=== PATIENT | male | born 1970 | race Caucasian/White ===

== ENCOUNTER 2021-10-01 14:34 | Outpatient (CLI) | payer BC, SELFPAY ==
--- NOTE | ~2021-10-01 | XR_ITS ---
XR abdomen/kub 1V 10/01/2021 14:53 Indication: Renal stones Procedure: KUB Comparison: No prior studies for comparison. Findings: There are left renal stones, largest measuring approximately 7 mm. Bowel gas pattern is non obstructive. No acute osseous abnormality. There are surgical changes in the pelvis. Impression: 1: Left nephrolithiasis. Reviewed, dictated and finalized at location B. Impression: 1: Left nephrolithiasis.
== END 2021-10-01 14:35 | disposition home or self-care (01) ==
PROVIDERS: Visit Provider Urology
DX: N20.0 Calculus of kidney (principal)
CPT/HCPCS: 74018

== ENCOUNTER 2021-11-23 15:04 | Outpatient (CLI) | payer BC, SELFPAY ==
--- NOTE | ~2021-11-23 | XR_ITS ---
XR abdomen/kub 1V 11/23/2021 15:30 Indication: Renal stones Procedure: KUB Comparison: 10/01/2021 Findings: There are bilateral renal stones, largest in the left kidney measuring 1 cm. Bowel gas jessica herlinda nonobstructive. There is a pelvic phleboliths. There are surgical changes in the pelvis and testi cles. No acute osseous abnormality. Impression: 1: Bilateral nephrolithiasis. Reviewed, dictated and finalized at location A. Impression: 1: Bilateral nephrolithiasis.
== END 2021-11-23 15:05 | disposition home or self-care (01) ==
LOC: ANHIMG 15:19
PROVIDERS: Visit Provider Urology
DX: N20.0 Calculus of kidney (principal)
CPT/HCPCS: 74018